=== PATIENT | female | born 2000 | race Caucasian/White ===

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

== ENCOUNTER 2022-12-19 21:24 | Emergency (ER) | payer MEDICAID ==
[2022-12-19] MEDS ORDERED: XYLOCAINE 1% HCL 20 ML MDV IJ ONE (21:25)
[2022-12-19 21:46] VITALS: TEMP 97.3
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
[2022-12-19 21:56] LABS: Appearance Cloudy (Clear); Bacteria Many /HPF (None Seen); Bilirubin Negative (Negative); Blood Small (Negative); Epithelial Cells Moderate /HPF (None Seen); Glucose, Urine Negative (Negative); Ketones Trace (Negative); Leukocyte Esterase Moderate (Negative); Nitrite Negative (Negative); Ph 5.5 (4.6-8.0); Protein,Urine Dip 30 (Negative); WBC >100 /HPF (0-5)
[2022-12-19 22:08] LABS: ADD URINE CULTURE? YES (NO)
[2022-12-19 22:24] LABS: HCG URINE TEST NEGATIVE (NEGATIVE)
[2022-12-19] MEDS ORDERED: Rocephin 1000 MG INJ IM ONE (22:49)
[2022-12-19] MEDS ORDERED: PYRIDIUM 200 MG PO ONE (22:50)
[2022-12-19] MEDS ORDERED: PYRIDIUM 200 MG ONE (22:57)
[2022-12-19] MEDS ORDERED: Rocephin 1000 MG INJ ONE (22:57)
[2022-12-19 23:29] LABS: CHLAMYDIA DNA NOT DETECTED (NEGATIVE); GC DNA Probe NOT DETECTED (NEGATIVE)
[2022-12-20 00:06] VITALS: BP 95/48; PULSE 70; RESP 16
[2022-12-20 00:09] VITALS: O2SAT 98
== END 2022-12-20 00:15 | disposition home or self-care (01) ==
LOC: ED 21:24
DX: N39.0 Urinary tract infection, site not specified (principal); L29.2 Pruritus vulvae
CPT/HCPCS: 81001; 81025; 87086; 87491; 87591; 96372; 99283; J0696; A9270-GY

== ENCOUNTER 2024-05-19 12:55 | Emergency (ER) | payer OTHER ==
[2024-05-19 13:19] VITALS: PULSE 97; RESP 19; TEMP 99.7
[2024-05-19] MEDS ORDERED: Sodium Chloride 0.9% 1000 ML 1,000 ML ONE (13:29)
[2024-05-19] MEDS ORDERED: Zofran 4 MG/2 ML VIAL ONE (13:29)
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
[2024-05-19] MEDS: Zofran 4 MG/2 ML VIAL IV ONE (13:30)
[2024-05-19] MEDS: Sodium Chloride 0.9% 1000 ML 1,000 ML IV STA (13:30)
[2024-05-19 13:38] LABS: Absolute Neutrophil Ct (ANC) 13.49 x10^3/uL (1.56-6.13); BASOPHIL % 0.4 % (0.1-1.2); Basophil (Absolute #) 0.06 x10^3/uL (0.01-0.08); Eosinophil % 0.2 % (0.7-5.8); Eosinophil (Absolute #) 0.04 x10^3/uL (0.04-0.36); Hematocrit 41.2 % (34.1-44.9); Hemoglobin 13.8 g/dL (11.2-15.7); IMMATURE GRAN # 0.06 x10^3u/L (0.001-0.031); IMMATURE GRAN % 0.4 % (0.001-0.429); Lymphocyte (Absolute #) 1.69 x10^3/uL (1.18-3.74); Lymphocytes % 10.2 % (19.3-51.7); Mean Cell Volume 86.6 fL (79.4-94.8); Mean Corpuscular Hgb Concent. 33.5 g/dL (32.2-35.5); Mean Platelet Volume 10.8 fL (9.4-12.3); Monocyte (Absolute #) 1.29 x10^3/uL (0.24-0.86); Monocytes % 7.8 % (4.7-12.5); Platelet Count 274 x10^3/uL (182-369); Red Blood Count 4.76 x10^6/uL (3.93-5.22); Red Cell Distribution Width 11.8 % (11.7-14.4); White Blood Count 16.6 x10^3/uL (3.98-10.04)
[2024-05-19 13:49] LABS: HCG SERUM TEST NEGATIVE (NEGATIVE)
[2024-05-19 13:51] LABS: ALBUMIN 4.8 g/dL (3.5-5.0); ANION GAP 13.5 MEQ/L (5-15); BILIRUBIN,TOTAL 0.7 mg/dL (0.2-1.3); Calcium 9.6 mg/dL (8.4-10.2); Creatinine 1 0.78 mg/dL (0.52-1.04); EST GLOMERULAR FILTRATION RATE 110.1 ML/MIN; Potassium 3.5 mmol/L (3.5-5.1); Total Protein 8.3 g/dL (6.3-8.2)
[2024-05-19] MEDS ORDERED: ROCEPHIN 1 GM / 100 ML NaCl 1 GM/100 ML IVPB IV ONE (14:05)
[2024-05-19] MEDS: ROCEPHIN 1 GM / 100 ML NaCl 1 GM/100 ML IVPB IV ONE (14:06)
[2024-05-19 14:16] LABS: INFLUENZA A NEGATIVE (NEGATIVE); INFLUENZA B NEGATIVE (NEGATIVE); RESPIRATORY SYNCTIAL VIRUS NEGATIVE (NEGATIVE); SARS-CoV-2 Xpert Express NEGATIVE (NEGATIVE)
[2024-05-19 14:25] VITALS: BP 105/67; O2SAT 94
--- NOTE | 2024-05-19 18:12 | XRAY ---
Indication: Fever. Sore throat. Comparison: None PA/lateral chest demonstrates normal heart, lungs, and bony thorax.
== END 2024-05-19 14:31 | disposition home or self-care (01) ==
LOC: ED 12:55
DX: J02.0 Streptococcal pharyngitis (principal); R11.2 Nausea with vomiting, unspecified; R51.9 Headache, unspecified; R05.1 Acute cough; Z79.899 Other long term (current) drug therapy
CPT/HCPCS: 0241U; 36415; 71046; 80053; 84703; 85025; 86308; 87651; 96365; 96374; 99285; 99284; J0696; J2405

== ENCOUNTER 2024-09-18 12:01 | Emergency (ER) | payer OTHER ==
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
[2024-09-18 13:13] VITALS: TEMP 98
[2024-09-18 13:57] LABS: BASOPHIL % 0.7 % (0.1-1.2); Basophil (Absolute #) 0.04 x10^3/uL (0.01-0.08); Eosinophil (Absolute #) 0.12 x10^3/uL (0.04-0.36); Hematocrit 38.8 % (34.1-44.9); IMMATURE GRAN # 0.01 x10^3u/L (0.001-0.031); IMMATURE GRAN % 0.2 % (0.001-0.429); Lymphocyte (Absolute #) 2.06 x10^3/uL (1.18-3.74); Lymphocytes % 33.8 % (19.3-51.7); Mean Cell Volume 86.8 fL (79.4-94.8); Mean Corpuscular Hemoglobin 29.1 pg (25.6-32.2); Mean Corpuscular Hgb Concent. 33.5 g/dL (32.2-35.5); Monocyte (Absolute #) 0.47 x10^3/uL (0.24-0.86); Monocytes % 7.7 % (4.7-12.5); Neutrophil % 55.6 % (34.0-71.1); Platelet Count 253 x10^3/uL (182-369); Red Blood Count 4.47 x10^6/uL (3.93-5.22); Red Cell Distribution Width 11.7 % (11.7-14.4); White Blood Count 6.1 x10^3/uL (3.98-10.04)
[2024-09-18 14:06] LABS: Appearance Cloudy (Clear); Bacteria Moderate /HPF (None Seen); Bilirubin Negative (Negative); Blood Large (Negative); Epithelial Cells Many /HPF (None Seen); Glucose, Urine Negative (Negative); Hyaline Casts NONE SEEN /LPF (0-2); Ketones Negative (Negative); Leukocyte Esterase Small (Negative); Nitrite Negative (Negative); Protein,Urine Dip Negative (Negative); RBC 0-2 /HPF (0-5); Specific Gravity 1.015 (1.005-1.030)
[2024-09-18 14:11] LABS: ALBUMIN 4.6 g/dL (3.5-5.0); ANION GAP 14.3 MEQ/L (5-15); BILIRUBIN,TOTAL 0.7 mg/dL (0.2-1.3); Calcium 9.5 mg/dL (8.4-10.2); Creatinine 1 0.61 mg/dL (0.52-1.04); EST GLOMERULAR FILTRATION RATE 129.6 ML/MIN; Potassium 3.8 mmol/L (3.5-5.1); Total Protein 7.3 g/dL (6.3-8.2)
[2024-09-18 14:24] VITALS: O2SAT 98
[2024-09-18] MEDS ORDERED: KEFLEX 500 MG ONE (15:08)
[2024-09-18] MEDS: KEFLEX 500 MG PO ONE (15:09)
[2024-09-18 15:48] VITALS: BP 104/52; PULSE 66; RESP 17
== END 2024-09-18 15:45 | disposition home or self-care (01) ==
LOC: ED 12:01
DX: O20.9 Hemorrhage in early pregnancy, unspecified (principal); O23.41 Unspecified infection of urinary tract in pregnancy, first trimester; N39.0 Urinary tract infection, site not specified; Z3A.08 8 weeks gestation of pregnancy; Z79.899 Other long term (current) drug therapy
CPT/HCPCS: 36415; 80053; 81001; 84702; 85025; 87086; 99283; A9270-GY